=== PATIENT | female | born 1985 | race Caucasian/White ===

== ENCOUNTER 2017-08-16 06:22 | Inpatient (IN) | payer OTHER ==
[~2017-08-16] VITALS: Ht 160 cm; Wt 73.6 kg
--- NOTE | 2017-08-16 06:41 | NUR ---
REC'D A 32/F IN RM 8 WITH C/O LLQ PAIN X 2 HRS PT REPORTS VOMITING. PT AAOX4, CRYING AT BEDSIDE. ON CM, SPOUSE AT BEDSIDE. WILL CONTINUE TO MONITOR.
--- NOTE | 2017-08-16 07:20 | NUR ---
20 G SL RIGHT AC, PATENT. LEFT FLANK PAIN X 2 HOURS, NO RESP DISTRESS
[2017-08-16 07:27] LABS: BASOPHIL % 0.4 % (0-2); PLATELET COUNT 349 x10^3mcL (130-400)
[2017-08-16 07:36] LABS: RED CELL DISTRIBUTION WIDTH 16.9 % (11.5-14.5)
[2017-08-16 07:46] LABS: CALCIUM 8.3 mg/dL (8.5-10.1); CARBON DIOXIDE 24.4 mmol/L (21-32); CHLORIDE SERUM 105 mmol/L (98-107); CREATININE SERUM 0.8 mg/dL (0.6-1.0); GFR1 > 60 mL/min; GLUCOSE SERUM 114 mg/dL (74-106); POTASSIUM SERUM 3.6 mmol/L (3.5-5.1); SODIUM SERUM 140 mmol/L (136-145)
[2017-08-16 07:49] LABS: T3 TOTAL 1.03 ng/mL
[2017-08-16 07:51] LABS: ALBUMIN 3.7 g/dL (3.4-5.0); ALKALINE PHOSPHATASE 81 U/L (46-116); ALT/SGPT 21 U/L (14-59); AST/SGOT 15 U/L (15-37); BILIRUBIN TOTAL 0.2 mg/dL (0.20-1.00); CHOLESTEROL 140 mg/dL (<200); LIPASE 180 IU/L (73-393); TOTAL PROTEIN, SERUM 7.8 g/dL (6.4-8.2); TRIGLYCERIDES 43 mg/dL (<150)
[2017-08-16 07:52] LABS: CHOLESTEROL/HDL RATIO 2.3; HDL CHOLESTEROL 62 mg/dL (40-60)
[2017-08-16 08:11] LABS: FREE T4 1.03 ng/dL (0.76-1.46); FREE THYROXINE INDEX 3.2 ug/dL (1.4-4.5); T4(THYROXINE) 9.1 ug/dL (4.7-13.3)
[2017-08-16 08:32] LABS: UA SPECIFIC GRAVITY 1.025 (1.005-1.035); microscopic required? YES; urine erythrocyte 3+ (NEGATIVE)
--- NOTE | 2017-08-16 10:00 | NUR ---
RESTING COMFORTABLY, NO RES DISTRESS
--- NOTE | 2017-08-16 11:46 | NUR ---
NARES MRSA SWAB TO LAB, PT AWARE OF PLAN TO ADMIT, AND VERBALIZED PLAN OF CARE, DR SHAH TALKED TO PT ABOUT DX
[2017-08-16] MEDS ORDERED: NATURAL IRON65 MG PO (11:58)
[2017-08-16] MEDS ORDERED: VIT C (11:58)
[2017-08-16] MEDS ORDERED: OSTERA TABLET1 EACH (11:59)
--- NOTE | 2017-08-16 12:32 | NUR ---
REPORT TO LORRAINE SALOMON FOR ROOM 204-B
--- NOTE | 2017-08-16 13:15 | NUR ---
PT RECEIVED FROM ED VIA [place]. PT AAOXX4. APPEARS CALM. DENIES PAIN AT THIS TIME. TELE MONITOR [address] RESPIRATIONS EVEN AND UNLABORED ON ROOM AIR. LUNG SOUNDS CTA. IV APPEARS PATENT. PATIENT IS AMBULATORY WITH STEADY GAIT. HAS BEEN ORIENTED TO ROOM AND ITS FEATURES. CALL LIGHT WITHIN REACH. NO SIGNS OF ACUTE DISTRESS AT THIS TIME. WILL CONTINUE TO MONITOR.
[2017-08-16 13:19] VITALS: BP 124/63
[2017-08-16 13:22] LABS: MAGNESIUM 2.2 mg/dL (1.8-2.4)
--- NOTE | 2017-08-16 13:28 | NUR ---
RECEIVED PATIENT FROM ED VIA [facility], PATIENT ALERT AND ORIENTED, TELE # 25 SR, IV ACCESS TO RAC WNL, NO C/O PAIN AT THIS TIME, ORIENTED PATIENT TO ROOM AND SURROUNDINGS, BED IN LOW POSITION, BED RAILS UP X 2, CALL LIGHT WITHIN REACH, WILL ENDORSE CARE TO PRIMARY NURSE LORRAINE SALOMON
[2017-08-16 15:35] LABS: RED BLOOD CELLS 4.39 M/mm3 (4.10-5.10)
[2017-08-16 15:40] LABS: AMPHETAMINE QUAL UR NONE DETECTED (NEG <=1000)
[2017-08-16 17:20] LABS: IRON 15 ug/dL (50-170); TOTAL IRON BINDING CAPACITY 453 ug/dL (250-450)
[2017-08-16 17:21] VITALS: BP 126/79
--- NOTE | 2017-08-16 19:22 | NUR ---
REPORT GIVEN TO [facility] NURSE. AT THIS TIME THE PATIENT IS RESTING IN BED. FAMILY AT BEDSIDE. PT APPEARS CALM. TELE MONITOR IN PLACE. IV INFUSING PER ORDER, APPEARS PATENT. PATIENT HAS BEEN AMBULATING THROUGH THE HALLWAY FREQUENTLY. NO SIGNS OF ACUTE DISTRESS AT THIS TIME. WILL CONTINUE TO MONITOR.
--- NOTE | 2017-08-16 19:44 | NUR ---
Awake and verbally responsive. Ambulatory. No resp.distress noted. Denies pain at this time. Denies n/v. Will cont.to monitor. Call light within reach.
[2017-08-16 21:06] VITALS: BP 116/76
--- NOTE | 2017-08-17 04:01 | NUR ---
Afebrile. No significant change in condition noted. Denies pain. No n/v noted. No dysuria or hematuria. Strained all urine. No stone noted. Cont.on IV rocephin. In no apparent distress.
[2017-08-17 05:50] VITALS: BP 124/75
[2017-08-17 06:15] LABS: BASOPHIL % 0.1 % (0-2); PLATELET COUNT 283 x10^3mcL (130-400)
[2017-08-17 06:35] LABS: CALCIUM 7.9 mg/dL (8.5-10.1); CARBON DIOXIDE 24.5 mmol/L (21-32); CHLORIDE SERUM 109 mmol/L (98-107); CREATININE SERUM 1.1 mg/dL (0.6-1.0); GFR1 > 60 mL/min; GLUCOSE SERUM 93 mg/dL (74-106); POTASSIUM SERUM 3.5 mmol/L (3.5-5.1); SODIUM SERUM 142 mmol/L (136-145)
[2017-08-17 06:49] LABS: RED CELL DISTRIBUTION WIDTH 17.3 % (11.5-14.5)
--- NOTE | 2017-08-17 07:18 | NUR ---
PATIENT RECEIVED AND SEEN. APPEARS CALM. AAOX4. DENIES PAIN AT THIS TIME. TELE MONITOR IN PLACE. SCDS AT BEDSIDE. PATIENT AMBULATORY. LUNGS CTA ON RA. SKIN INTACT. NS INFUSING PER ORDER, IV PATENT AND WNL. CALL LIGHT WITHIN REACH. PATIENT APPEARS CALM AT THIS TIME. WILL CONTINUE TO MONITOR.
[2017-08-17 09:48] VITALS: BP 136/89
--- NOTE | 2017-08-17 12:07 | NUR ---
DR NUNES AND MEDICAL TEAM VISITED PATIENT AT THIS TIME. PATIENT AGREEABLE TO PLAN OF CARE. FAMILY AT BEDSIDE. PATIENT APPEARS CALM. NO SIGNS OF DISTRESS. NO ACUTE CHANGES TO CONDITION AT THIS TIME. WILL CONTINUE TO MONITOR PATIENT. CALL LIGHT WITHIN REACH.
[2017-08-17 13:45] VITALS: BP 122/83
[2017-08-17 17:23] VITALS: BP 122/78
--- NOTE | 2017-08-17 19:20 | NUR ---
REPORT GIVEN TO NIGHT NURSE. AT THIS TIME THE PATIENT IS RESTING IN BED. APPEARS CALM. NO SIGNS OF ACUTE DISTRESS. NO ACUTE CHANGES TO CONDITION. CALL LIGHT WITHIN REACH. ALL SAFETY MEASURES IN PLACE.
--- NOTE | 2017-08-17 19:30 | NUR ---
RECEIVED REPORT FROM DAY SHIFT RN. PT SITTING UP IN BED. NO C/O PAIN AT THIS TIME. IV ON LEFT HAND, NS INFUSING. SAFETY PRECAUTIONS IN PLACE. INSTRUCTED PT TO CALL IF ASSISTANCE IS NEEDED. CALL LIGHT WITHIN REACH.
[2017-08-17 21:34] VITALS: BP 116/72
[2017-08-18 05:14] VITALS: BP 108/53
[2017-08-18 06:14] LABS: BASOPHIL % 0.3 % (0-2); PLATELET COUNT 292 x10^3mcL (130-400)
[2017-08-18 06:26] LABS: CALCIUM 8.1 mg/dL (8.5-10.1); CARBON DIOXIDE 26.9 mmol/L (21-32); CHLORIDE SERUM 109 mmol/L (98-107); GFR1 > 60 mL/min; GLUCOSE SERUM 94 mg/dL (74-106); POTASSIUM SERUM 3.6 mmol/L (3.5-5.1); SODIUM SERUM 141 mmol/L (136-145)
[2017-08-18 06:50] LABS: RED CELL DISTRIBUTION WIDTH 17.2 % (11.5-14.5)
--- NOTE | 2017-08-18 07:00 | NUR ---
PT SLEPT AT LONG INTERVALS DURING SHIFT. C/O L FLANK PAIN X2, MEDICATED WITH NORCO. STRAINED URINE, NO CALCULUS NOTED. SAFETY MEASURES MAINTAINED. CALL LIGHT WITHIN REACH. WILL ENDORSE CONTINUITY OF CARE TO ONCOMING RN.
--- NOTE | 2017-08-18 07:20 | NUR ---
PATIENT RECEIVED AND SEEN. PATIENT IS AAOX4. APPEARS CALM . TELE [address] DENIES CHEST PAIN. SCDS IN PLACE. RESPIRATIONS EVEN AND UNLABORED ON ROOM AIR. LUNG SOUNDS CTA. BS ACTIVE. PATIENT IS AMBULATORY. SKIN INTACT. DENIES PAIN AT THIS TIME. NS INFUSING AT 100ML/HR, IV APPEARS PATENT AND WNL. CALL LIGHT WITHIN REACH. WILL CONTINUE TO MONITOR.
--- NOTE | 2017-08-18 09:05 | NUR ---
DR NUNES AND PHYSICIAN TEAM VISITED PATIENT ROOM AND SPOKE TO PATIENT THIS MORNING. PATIENT WAS AGREEABLE TO PLAN OF CARE. ALL QUESTIONS ANSWERED. WILL CONTINUE TO MONITOR. CALL LIGHT WITHIN REACH.
[2017-08-18 09:51] VITALS: BP 146/92
--- NOTE | 2017-08-18 11:30 | NUR ---
PATIENT HAS MOVED ROOMS TO ROOM 201 A. ALL BELONGINGS WERE TRANSFERRED OVER. PATIENT HAS NO SIGNS OF ACUTE DISTRESS AT THIS TIME. WILL CONTINUE TO MONITOR. CALL LIGHT WITHIN REACH.
[2017-08-18 13:31] VITALS: BP 113/68
--- NOTE | 2017-08-18 16:40 | NUR ---
PATIENT REQUESTED IF SHE CAN MEET HER KIDS IN THE [facility]. CALLED ATHLETIC COORDINATOR DIPTI AND GOT APPROVAL FOR PATIENT TO WALK OUT TO [facility] ACCOMPANIED BY A CHARGE MACHINE OPERATOR TO MEET HER CHILDREN. CHARGE NURSE NOTIFIED. AT THIS TIME THE PATIENT IS RESTING IN BED. DENIES PAIN. NO SIGNS OF ACUTE DISTRESS. AT BEDSIDE. CALL LIGHT WITHIN REACH. WILL CONTINUE TO MONITOR.
[2017-08-18 17:10] VITALS: BP 112/76
--- NOTE | 2017-08-18 19:16 | NUR ---
CARE ENDORSED TO NIGHT NURSE. PATIENT IS AAOX4. APPEARS STABLE. NO INDICATIONS OF ACUTE DISTRESS. ALL SAFETY MEASURES IN PLACE.
--- NOTE | 2017-08-18 19:30 | NUR ---
RECEIVED REPORT FROM DAY SHIFT RN. PT SITTING UP IN BED. NO C/O PAIN AT THIS TIME. NO DISTRESS NOTED. IV ON LEFT HAND, INTACT. SAFETY MEASURES IN PLACE. INSTRUCTED PT TO CALL IF ASSISTANCE IS NEEDED. CALL LIGHT WITHIN REACH.
[2017-08-18 21:17] VITALS: BP 110/74
[2017-08-19 04:41] VITALS: BP 118/73
[2017-08-19 06:22] LABS: BASOPHIL % 0.2 % (0-2); PLATELET COUNT 292 x10^3mcL (130-400)
[2017-08-19 06:40] LABS: CHLORIDE SERUM 107 mmol/L (98-107); CREATININE SERUM 1.1 mg/dL (0.6-1.0); GFR1 > 60 mL/min; GLUCOSE SERUM 90 mg/dL (74-106); POTASSIUM SERUM 3.4 mmol/L (3.5-5.1); SODIUM SERUM 141 mmol/L (136-145)
--- NOTE | 2017-08-19 07:00 | NUR ---
PT SLEPT WELL DURING SHIFT. C/O ABD PAIN X1, MEDICATED WITH TORADOL. SAFETY MEASURES MAINTAINED. CALL LIGHT WITHIN REACH. WILL ENDORSE CARE TO ONCOMING RN.
--- NOTE | 2017-08-19 07:30 | NUR ---
AWAKE BUT SLEEPY, DENIES PAIN AND NAUSEA AT THIS TIME, NS @ 100 TO LH WNL. CALL LIGHT WITHIN REACH.
--- NOTE | 2017-08-19 08:32 | NUR ---
DR CUNHA IN TO SEE PATIENT, AWARE K+ 3.4.
--- NOTE | 2017-08-19 09:33 | NUR ---
PT AWAKE, ALERT, ORIENTED. DENIES PAIN AT THIS TIME. WATCHING TV WITH PHONE IN HAND. LUNG SOUNDS CLEAR TO AUSCULTATION IN ALL JOE, CHEST RISE/FALL SYMMETRICAL. NO SOB NOTED. HRRR. PULSES STRONG THROUGHOUT ALL EXTREMITIES. BOWEL SOUNDS ACTIVE X 4, STATES LBM 08/16/17. NO ABDOMEN TENDERNESS, SOFT, ROUND. IV REMAINS INTACT AND PATENT, CLEAN AND DRY WITH NO SIGNS OF INFILTRATION. BED IN LOWEST POSITION, CALL LIGHT WITHIN REACH, 2 RAILS UP.
[2017-08-19 10:20] VITALS: BP 126/71
[2017-08-19] MEDS ORDERED: FLO4 PO (13:19)
--- NOTE | 2017-08-19 13:32 | NUR ---
REQUESTING A NOTE FOR WORK, DR HAWKINS MADE AWARE.
[2017-08-19 13:54] VITALS: BP 126/71
[2017-08-19] MEDS ORDERED: LEVAQUIN750 MG PO (13:58)
--- NOTE | 2017-08-19 14:11 | NUR ---
PT AWAITING DISCHARGE. CURRENTLY IN BED WATCHING TV. DENIES PAIN. IN NO APPARENT DISTRESS. BED IN LOWEST POSITION, CALL LIGHT WITHIN REACH, 2 RAILS UP.
--- NOTE | 2017-08-19 14:44 | NUR ---
DISCHARGE EDUCATION PROVIDED TO PATIENT ABOUT DISEASE PROCESS, FOLLOW UP WITH PCP, AND DISCHARGE MEDICATIONS. PT VERBALIZES UNDERSTANDING. IV DC'D, CATHETER INTACT. STATES FAMILY WILL PICKUP. WILL WHEELCHAIR PATIENT DOWN WHEN TRANSPORTATION ARRIVES.
== END 2017-08-19 14:57 | disposition home or self-care (01) | DRG 465 ==
LOC: ED 06:22 → MU 11:41 → DU 11:41 → MU 08-18 10:00
PROVIDERS: Specialist; Student in an Organized Health Care Education/Training Program; ADMIT Family Medicine
DX: N13.2 Hydronephrosis with renal and ureteral calculous obstruction (principal); N39.0 Urinary tract infection, site not specified; E83.51 Hypocalcemia; D50.9 Iron deficiency anemia, unspecified; Z68.28 Body mass index [BMI] 28.0-28.9, adult; Z53.29 Procedure and treatment not carried out because of patient's decision for other reasons
CPT/HCPCS: 83880; 84439; J0696; J1170; J1885; J2405; J3010; J7030

== ENCOUNTER 2020-02-09 07:40 | Emergency (ER) | payer BC ==
[~2020-02-09] VITALS: Ht 160 cm; Wt 75.3 kg
[~2020-02-09 07:40] MED LIST: FLO4 PO; LEVAQUIN750 MG PO; NATURAL IRON65 MG PO; OSTERA TABLET1 EACH; VIT C
[2020-02-09 07:48] VITALS: Ht 160 cm; Wt 75.3 kg
[2020-02-09 08:09] LABS: BASOPHIL % 0.3 % (0-2); PLATELET COUNT 205 x10^3mcL (130-400); RED CELL DISTRIBUTION WIDTH 26.4 % (11.5-14.5)
[2020-02-09 08:18] LABS: CALCIUM 8.5 mg/dL (8.5-10.1); CHLORIDE SERUM 107 mmol/L (98-107); CREATININE SERUM 0.8 mg/dL (0.6-1.0); GFR1 > 60 mL/min; GLUCOSE SERUM 118 mg/dL (74-106); POTASSIUM SERUM 3.4 mmol/L (3.5-5.1); SODIUM SERUM 142 mmol/L (136-145)
[2020-02-09 08:23] LABS: ALKALINE PHOSPHATASE 70 U/L (46-116); ALT/SGPT 26 U/L (14-59); AST/SGOT 16 U/L (15-37); BILIRUBIN TOTAL 0.4 mg/dL (0.20-1.00); TOTAL PROTEIN, SERUM 7.4 g/dL (6.4-8.2)
[2020-02-09 09:05] LABS: ovalocyte/elliptocyte 1+; rbc morphology (normal/abnorm) ABNORMAL (NORMAL)
[2020-02-09 10:00] VITALS: BP 122/76
== END 2020-02-09 10:00 | disposition home or self-care (01) ==
LOC: ED 07:40
PROVIDERS: Emergency Medicine
DX: N93.8 Other specified abnormal uterine and vaginal bleeding (principal)
CPT/HCPCS: J1885; J2405; Q0092

== ENCOUNTER 2020-08-28 18:19 | Emergency (ER) | payer OTHER ==
[~2020-08-28] VITALS: Ht 160 cm; Wt 76.7 kg
[2020-08-28 18:44] VITALS: Ht 160 cm; Wt 76.7 kg
[2020-08-28 19:52] LABS: BASOPHIL % 0.1 % (0-2); PLATELET COUNT 228 x10^3mcL (130-400); RED CELL DISTRIBUTION WIDTH 13.1 % (11.5-14.5)
[2020-08-28 20:00] LABS: CREATININE SERUM 1.7 mg/dL (0.6-1.0); POTASSIUM SERUM 3.9 mmol/L (3.5-5.1)
[2020-08-28 20:04] LABS: BILIRUBIN TOTAL 0.4 mg/dL (0.20-1.00); TOTAL PROTEIN, SERUM 7.9 g/dL (6.4-8.2)
[2020-08-28 22:18] VITALS: BP 123/79
== END 2020-08-28 22:18 | disposition home or self-care (01) ==
LOC: ED 18:19
PROVIDERS: Emergency Medicine
DX: N20.0 Calculus of kidney (principal)
CPT/HCPCS: J1885; J2405; J7030